=== PATIENT | female | born 1990 | race Asian ===

== ENCOUNTER → 2019-06-03 | Outpatient (CLI) | payer OTHER ==
[2019-06-04 09:55] LABS: RUBEOLA (MEASLES) IGG 49.7 AU/mL (Immune >16.4)
== END | disposition home or self-care (01) ==
LOC: LABPV 13:29
PROVIDERS: ATTEND Internal Medicine
DX: Z02.1 Encounter for pre-employment examination (principal)
CPT/HCPCS: 86706; 86735; 86762; 86765; 86787